=== PATIENT | female | born 1995 | race American Indian/Alaskan Native ===

== ENCOUNTER 2019-03-19 19:09 | Emergency (ER) | payer MEDICAID, OTHER ==
[2019-03-19 20:19] VITALS: BP 136/77
--- NOTE | 2019-03-19 23:37 | Emergency Department Report ---
ED ENT HPI - General Chief complaint: Earache Stated complaint: RIGHT EAR PAIN Time Seen by Provider: 03/19/19 21:42 Source: patient Mode of arrival: Ambulatory Limitations: No Limitations - History of Present Illness Initial comments: Patient is a 23-year-old female who presents emergency room with complaints of right ear pain without began this morning. She denies any drainage or fever. She states she has had this before when she had a cerumen impaction. She denies any past medical history or allergies to medications. - Related Data Allergies Allergy/AdvReac Type Severity Reaction Status Date / Time chocolate flavor Allergy Swelling Verified 03/19/19 19:22 ED Dental HPI - General Chief complaint: Earache Stated complaint: RIGHT EAR PAIN Time Seen by Provider: 03/19/19 21:42 Source: patient Mode of arrival: Ambulatory Limitations: No Limitations - Related Data Allergies Allergy/AdvReac Type Severity Reaction Status Date / Time chocolate flavor Allergy Swelling Verified 03/19/19 19:22 ED Review of Systems ROS: Stated complaint: RIGHT EAR PAIN Other details as noted in HPI Comment: All other systems reviewed and negative ED Past Medical Hx - Past Medical History Previous Medical History?: No - Surgical History Past Surgical History?: No - Social History Smoking Status: Never Smoker ED Physical Exam - General Limitations: No Limitations General appearance: alert, in no apparent distress - Head Head exam: Present: atraumatic, normocephalic - Eye Eye exam: Present: normal appearance, PERRL, EOMI - ENT ENT exam: Present: normal orophraynx, mucous membranes moist, other (bilateral cerumen impaction ) - Respiratory Respiratory exam: Present: normal lung sounds bilaterally. Absent: respiratory distress, wheezes, rales, rhonchi, stridor, chest wall tenderness, accessory muscle use, decreased breath sounds, prolonged expiratory - Cardiovascular Cardiovascular Exam: Present: regular rate, normal rhythm, normal heart sounds. Absent: systolic murmur, diastolic murmur, rubs, gallop - Neurological Exam Neurological exam: Present: alert, oriented X3 - Psychiatric Psychiatric exam: Present: normal affect, normal mood - Skin Skin exam: Present: warm, dry, intact ED Course Vital Signs 03/19/19 03/20/19 20:16 03:04 Temperature 98.8 F Pulse Rate 71 69 Respiratory 16 15 Rate Blood Pressure 136/77 O2 Sat by Pulse 100 100 Oximetry - Ear Wax Removal Both Ears Ear Canal Irrigated by: other (Kira Mitchell PA-C) Ear Canal Irrigated With: warm saline with H2O2 using syringe/angiocath Ear Canal(s) Curettaged: other (none) Results: Re-examined: cerumen removed completel TM Visible: TM(s) intact, normal appe (bilaterally ) Ear Canal: atraumatic Patient Tolerated Procedure: well, no complications Complications: no problems ED Medical Decision Making - Medical Decision Making Patient is a 23-year-old female who presents emergency room with complaints of right ear pain without began this morning. She denies any drainage or fever. She states she has had this before when she had a cerumen impaction. She denies any past medical history or allergies to medications. vitals are normal. on exam: bilateral cerumen impactions. wax removal per procedure note with normal bilateral TMs and canals. advised pt to follow up with a primary care doctor in the next 2-3 days. return to the emergency room for any new or worsening symptoms. - Differential Diagnosis cerumen impaction, otitis media, otitis externa, ear ache Critical care attestation.: If time is entered above; I have spent that time in minutes in the direct care of this critically ill patient, excluding procedure time. ED Disposition Clinical Impression: Cerumen impaction Qualifiers: Laterality: bilateral Qualified Code(s): H61.23 - Impacted cerumen, bilateral Disposition: DC- TO HOME OR SELFCARE Is pt being admited?: No Does the pt Need Aspirin: No Condition: Stable Instructions: Cerumen Impaction (ED) Additional Instructions: follow up with a primary care doctor in the next 2-3 days. return to the emergency room for any new or worsening symptoms. Referrals: NGUYEN FOURNIER [Primary Care Provider] - 2-3 Days Time of Disposition: 02:48 Print Language: URDU
[2019-03-20] MEDS ORDERED: HYDROGEN PEROXIDE TP ONE (01:02)
[2019-03-20] MEDS ORDERED: NACL 0.9% IR ONE (01:02)
[2019-03-20] MEDS ORDERED: HYDROGEN PEROXIDE ONE (01:06)
[2019-03-20] MEDS ORDERED: IBUPROFEN PO ONE (01:35)
[2019-03-20] MEDS ORDERED: IBUPROFEN ONE (01:36)
== END 2019-03-20 03:03 | disposition home or self-care (01) ==
LOC: ED 19:09
DX: H61.23 Impacted cerumen, bilateral (principal)
CPT/HCPCS: 99282